=== PATIENT | female | born 1995 | race Caucasian/White ===

== ENCOUNTER 2024-02-12 20:26 | Observation (INO) | payer OTHER, SELFPAY ==
[2024-02-12] VITALS (8 sets, daily range): BP systolic 116–145; BP diastolic 70–99; BMI 37.4; BMI 37.7
--- NOTE | 2024-02-12 16:11 | ED.GENMED ---
History of Present Illness
<Arnaud Vasquez PA-C - Last Filed: 02/12/24 18:06>
General
Chief Complaint: Flank Pain
Source: patient
Time Seen by Provider: 02/12/24 16:05
Travel History
Have you had any contact with someone who has COVID-19?: No
Do you have any symptoms of coronavirus? Fever > 100 degrees, chills, cough, shortness of breath, sore throat, loss of taste or smell, muscle aches, or headache?: No
History of Present Illness
History of Present Illness:
28-year-old female presenting to the emergency department for evaluation of right-sided flank pain that began few days ago while on vacation in [place]. Patient went to urgent care there who prescribed her Tylenol 3 but states she is having minimal
relief with this. Today symptoms continue to get worse and she noticed her urine was much darker in color prompting her to come to the ER for further evaluation. She has a history of 1 previous kidney stone in the past and this feels similar.
Denies any fevers, chills, rigors, nausea, urinary frequency/urgency/dysuria. Did not take anything else for the pain prior to arrival. Last menstrual period 1 week ago. No concern for . Social history noncontributory.
Past History
<Arnaud Vasquze PA-C - Last Filed: 02/12/24 18:06>
Past History
ED Past Medical History: None
ED Past Surgical History: Orthopedic
Social History
Tobacco: Non-smoker
Alcohol: Occasional
Drug: None
Personal: Single
Living: with family
Employment: Employed
Review of Systems
<BRENDA Estrada Last Filed: 02/12/24 18:06>
Review of Systems
All Other Systems: ROS reviewed and negative except as documented in HPI and ROS
Phy Exam
<BRENDA Estrada Last Filed: 02/12/24 18:06>
Physical Exam
Physical Exam:
GENERAL: Alert , appears in significant discomfort
EYE: clear conjunctiva b/l
HEAD: NCAT
ENT: mmm.
CARDIAC: Regular rate and rhythm .
LUNGS: Clear breath sounds bilaterally, no acute respiratory distress, no wheezes/rales/rhonchi
ABDOMEN: Soft, without focal tenderness, no r/g, moderate right CVA tenderness, negative Cesar sign, no tenderness at McBurney's point
NEUROLOGICAL: Alert and oriented
SKIN: Warm and dry, skin intact.
MUSCULOSKELETAL: well perfused.
PSYCH: Normal and appropriate interaction.
Scores
<Arnaud Vasquez PA-C - Last Filed: 02/12/24 18:06>
Heart Failure Risk
Heart Failure Risk Score: Not Applicable
Heart Score for Chest Pain Patients
STEMI patient?: Not applicable
Withdrawal Assessment of Alcohol
Withdrawal Assessment Completed?: Not applicable
Course
<Arnaud Vasquez PA-C - Last Filed: 02/12/24 18:06>
Orders/Labs/Results
Orders:
Orders
02/12/24 16:06
IV Insert/Care/Rem.- Treatment PRN
02/12/24 16:07
Test Result ONCE
02/12/24 16:14
Ketorolac [Toradol] 30 mg IV NOW STA
02/12/24 16:15
CT Abd/pel Without Iv Or Oral Urgent
Comment:
Reason For Exam: right flank pain, hx stones
02/12/24 16:18
Complete Blood Count/With Diff Urgent
Urinalysis Reflex To Culture Urgent
Date Specimen was Collected: 02/12/24
Time Specimen was Collected: 16:07
Urine Microscopic Reflex Cult Urgent
Urine Culture Urgent
AUDREY Source: U
Specimen Description:
Date Specimen was Collected: 02/12/24
Time Specimen was Collected: 16:07
02/12/24 16:24
0.9% Sodium Chloride 1000 ml [Nss] 1,000 ml IV BOLUS
02/12/24 16:50
CefTRIAXone [Rocephin] 1,000 mg IV NOW STA
02/12/24 17:16
Comprehensive Metabolic Panel Urgent
HCG, Serum Qualitative Screen Urgent
02/12/24 18:47
Acetaminophen 1000MG/100Ml [Ofirmev] 1,000 mg in 100 ml IV ONCE
Acetaminophen IV Indication:: ED Narcotic Naive Pt-ONCE
02/12/24 20:08
Admit/Transfer Patient As Directed
Co-Sign Provider:
Level of Care: Observation services
Assign to:: Medical/Surgical
Physician / Group: [facility]/Urological service
Diagnosis: obstructing kidney stone with leukocytosis
02/12/24 20:09
Code Status As Directed
Resuscitation Status: Full Code
02/12/24 21:19
0.9% Sodium Chloride 1000 ml [Nss] 1,000 ml IV 125 mls/hr
Acetaminophen [Tylenol] 650 mg PO Q4HPRN PRN
HYDROmorphone [Dilaudid] 0.5 mg IV Q2HPRN PRN
Ondansetron Injectable [Zofran] 4 mg IV Q6HPRN PRN
Oxycodone/Acetaminophen [Percocet 5/325] 1 tablet PO Q4HPRN PRN
Oxycodone/Acetaminophen [Percocet 5/325] 2 tablet PO Q4HPRN PRN
02/12/24 21:19
Activity As Directed
Activity Level: As Tolerated
Intake/ Output As Directed
Frequency: Per unit guidelines
Okay to Shower As Directed
Pneumatic Compression Sleeves As Directed
Type: Thigh high
Strain Urine As Directed
Vital Signs As Directed
Frequency: Per unit guidelines
DX Deep Vein Thrombosis Video Routine
02/12/24 22:00
Tamsulosin [Flomax] 0.4 mg PO HS
02/13/24 Breakfast
NPO
Allow oral meds: Yes
Allow clear liquids: 4hrs prior to procedure
NPO with Ice Chips: Yes
Comment: may have unrestricted clear liquid up to 4 hrs prior to scheduled procedure
Complete Blood Count/No Diff IN AM
02/13/24 08:00
Heparin 5,000 units SC Q12
02/13/24 16:00
CefTRIAXone [Rocephin] 1,000 mg IV Q24H
Abnormal Lab Results
02/12/24 02/12/24
16:18 17:16
WBC 13.2 H 10^3/uL
(4.8-10.8)
MPV 12.2 H fL
(7.4-10.4)
Abs Immat Gran (auto) 0.1 H 10^3/uL
(0-0.05)
Absolute Neuts (auto) 8.6 H 10^3/uL
(1.4-6.5)
Absolute Monos (auto) 1.0 H 10^3/uL
(0.1-0.6)
Carbon Dioxide 20 L mmol/L
(22-30)
Creatinine 1.1 H mg/dL
(0.6-1.0)
Total Bilirubin 1.5 H mg/dl
(0.2-1.3)
AST 42 H U/L
(14-36)
ALT 42 H U/L
(0-35)
Urine Ketones 3+ A
(Negative)
Ur Occult Blood Reflex 3+ A
(Negative)
Urine Nitrite (Reflex) Positive A
(Negative)
Urine Bilirubin 1+ A
(Negative)
Urine Urobilinogen 3+ A
(Neg - 1+)
Leukocyte Esterase Rfl Trace A
(Negative)
Urine RBC 50-60 A /HPF
(0-2)
Urine Bacteria (Reflex) Moderate A
(Negative)
Urine Albumin (Reflex) 1+ A
(Neg - Trace)
02/12/24 16:18
02/12/24 17:16
Vital Signs
Initial and Last Documented VS:
Initial Vital Signs
Temp Pulse Resp BP Pulse Ox
98.7 F 90 18 126/85 100
02/12/24 15:44 02/12/24 15:44 02/12/24 15:44 02/12/24 15:44 02/12/24 15:44
Last Documented Vital Signs
Temp Pulse Resp BP Pulse Ox
98.2 F 78 20 145/91 99
02/12/24 21:23 02/12/24 21:23 02/12/24 21:23 02/12/24 21:23 02/12/24 21:23
<KAM Angelo - Last Filed: 02/12/24 23:24>
Orders/Labs/Results
Orders:
Orders
02/12/24 16:06
IV Insert/Care/Rem.- Treatment PRN
02/12/24 16:07
Test Result ONCE
02/12/24 16:14
Ketorolac [Toradol] 30 mg IV NOW STA
02/12/24 16:15
CT Abd/pel Without Iv Or Oral Urgent
Comment:
Reason For Exam: right flank pain, hx stones
02/12/24 16:18
Complete Blood Count/With Diff Urgent
Urinalysis Reflex To Culture Urgent
Date Specimen was Collected: 02/12/24
Time Specimen was Collected: 16:07
Urine Microscopic Reflex Cult Urgent
Urine Culture Urgent
AUDREY Source: U
Specimen Description:
Date Specimen was Collected: 02/12/24
Time Specimen was Collected: 16:07
02/12/24 16:24
0.9% Sodium Chloride 1000 ml [Nss] 1,000 ml IV BOLUS
02/12/24 16:50
CefTRIAXone [Rocephin] 1,000 mg IV NOW STA
02/12/24 17:16
Comprehensive Metabolic Panel Urgent
HCG, Serum Qualitative Screen Urgent
02/12/24 18:47
Acetaminophen 1000MG/100Ml [Ofirmev] 1,000 mg in 100 ml IV ONCE
Acetaminophen IV Indication:: ED Narcotic Naive Pt-ONCE
02/12/24 20:08
Admit/Transfer Patient As Directed
Co-Sign Provider:
Level of Care: Observation services
Assign to:: Medical/Surgical
Physician / Group: [facility]/Urological service
Diagnosis: obstructing kidney stone with leukocytosis
02/12/24 20:09
Code Status As Directed
Resuscitation Status: Full Code
02/12/24 21:19
0.9% Sodium Chloride 1000 ml [Nss] 1,000 ml IV 125 mls/hr
Acetaminophen [Tylenol] 650 mg PO Q4HPRN PRN
HYDROmorphone [Dilaudid] 0.5 mg IV Q2HPRN PRN
Ondansetron Injectable [Zofran] 4 mg IV Q6HPRN PRN
Oxycodone/Acetaminophen [Percocet 5/325] 1 tablet PO Q4HPRN PRN
Oxycodone/Acetaminophen [Percocet 5/325] 2 tablet PO Q4HPRN PRN
02/12/24 21:19
Activity As Directed
Activity Level: As Tolerated
Intake/ Output As Directed
Frequency: Per unit guidelines
Okay to Shower As Directed
Pneumatic Compression Sleeves As Directed
Type: Thigh high
Strain Urine As Directed
Vital Signs As Directed
Frequency: Per unit guidelines
DX Deep Vein Thrombosis Video Routine
02/12/24 22:00
Tamsulosin [Flomax] 0.4 mg PO HS
02/13/24 Breakfast
NPO
Allow oral meds: Yes
Allow clear liquids: 4hrs prior to procedure
NPO with Ice Chips: Yes
Comment: may have unrestricted clear liquid up to 4 hrs prior to scheduled procedure
Complete Blood Count/No Diff IN AM
02/13/24 08:00
Heparin 5,000 units SC Q12
02/13/24 16:00
CefTRIAXone [Rocephin] 1,000 mg IV Q24H
Abnormal Lab Results
02/12/24 02/12/24
16:18 17:16
WBC 13.2 H 10^3/uL
(4.8-10.8)
MPV 12.2 H fL
(7.4-10.4)
Abs Immat Gran (auto) 0.1 H 10^3/uL
(0-0.05)
Absolute Neuts (auto) 8.6 H 10^3/uL
(1.4-6.5)
Absolute Monos (auto) 1.0 H 10^3/uL
(0.1-0.6)
Carbon Dioxide 20 L mmol/L
(22-30)
Creatinine 1.1 H mg/dL
(0.6-1.0)
Total Bilirubin 1.5 H mg/dl
(0.2-1.3)
AST 42 H U/L
(14-36)
ALT 42 H U/L
(0-35)
Urine Ketones 3+ A
(Negative)
Ur Occult Blood Reflex 3+ A
(Negative)
Urine Nitrite (Reflex) Positive A
(Negative)
Urine Bilirubin 1+ A
(Negative)
Urine Urobilinogen 3+ A
(Neg - 1+)
Leukocyte Esterase Rfl Trace A
(Negative)
Urine RBC 50-60 A /HPF
(0-2)
Urine Bacteria (Reflex) Moderate A
(Negative)
Urine Albumin (Reflex) 1+ A
(Neg - Trace)
02/12/24 16:18
02/12/24 17:16
Vital Signs
Initial and Last Documented VS:
Initial Vital Signs
Temp Pulse Resp BP Pulse Ox
98.7 F 90 18 126/85 100
02/12/24 15:44 02/12/24 15:44 02/12/24 15:44 02/12/24 15:44 02/12/24 15:44
Last Documented Vital Signs
Temp Pulse Resp BP Pulse Ox
98.2 F 78 20 145/91 99
02/12/24 21:23 02/12/24 21:23 02/12/24 21:23 02/12/24 21:23 02/12/24 21:23
<Arnaud Vasquez PA-C - Last Filed: 02/12/24 18:06>
MDM/Problems Addressed
Differential Diagnosis Includes:
Renal/ureteral colic, cystitis, pyelonephritis, muscular etiology
MDM/Problems Addressed:
28-year-old female presenting emergency department for evaluation of right-sided flank pain that has been ongoing the last few days. Unrelieved with Tylenol with codeine. Patient has history of kidney stones in the past and this feels similar.
Will order labs, CT and urine. Reassessment following.
<KAM Angelo - Last Filed: 02/12/24 23:24>
MDM/Problems Addressed
MDM/Problems Addressed:
28-year-old female presenting emergency department for evaluation of right-sided flank pain that has been ongoing the last few days. Unrelieved with Tylenol with codeine. Patient has history of kidney stones in the past and this feels similar.
Will order labs, CT and urine. Reassessment following.
Pt was admitted to urology
<Arnaud Vasquez PA-C - Last Filed: 02/12/24 18:06>
*Pulse Oximetry
Patient hypoxic: no
<KAM Angelo - Last Filed: 02/12/24 23:24>
*Critical Care Note
Total Time (30-74mins, 75-104mins- exclusive of procedures): Not Applicable
<Arnaud Vasquez PA-C - Last Filed: 02/12/24 18:06>
Comment
Comment:
Patient UA nitrite positive. Rocephin 1g IV ordered.
Patient signed out to HARRIET Aretha Gomez pending CT scan and results/re-eval
ED Attending Note
<Arnaud Vasquez PA-C - Last Filed: 02/12/24 18:06>
-
Portions of this chart may have been created with voice recognition software.� Occasional wrong word or��sound alike� substitutions may have occurred due to the inherent limitations of voice recognition software.
Discharge Plan
Departure
Patient Disposition: Admit
Date of Disposition: 02/12/24
Time of Disposition: 18:06
Admit to: Med/Surg
Admit to doctor: Yady
Presentation/result/management discussed w/ accepting MD/DO: Christina/house provier
Discharge Problem:
Ureterolithiasis, UTI (urinary tract infection)
Interventions
Interventions:
*Risk Screen - Suicide Last Done: 02/12/24 22:03
*General Assessment Last Done: 02/12/24 16:29
*Neglect/Abuse Screening Last Done: 02/12/24 16:29
ED- Fall Risk Assessment Last Done: 02/12/24 18:02
*ED COVID-19 Vaccine History Last Done: 02/12/24 22:03
*Nursing Disposition Last Done: 02/12/24 21:15
ME-Uvdijw-Ovwuhasuas Assessment Last Done: 02/12/24 19:25
ED-Female Genitourinary Assessment Last Done: 02/12/24 16:29
Discharge Date and Time
Discharge Date/Time: 02/12/24 21:15
[2024-02-12] MEDS: TORADOL 30 MG IV (16:20)
[2024-02-12 16:23] LABS: Urine Albumin 1+ (Neg - Trace); Urine Bilirubin 1+ (Negative); Urine Character Very Cloudy (Clear); Urine Color Amber; Urine Glucose Negative (Negative); Urine Ketone 3+ (Negative); Urine Leukocyte Trace (Negative); Urine Nitrite Positive (Negative); Urine Occult Blood 3+ (Negative); Urine Urobilinogen 3+ (Neg - 1+)
[2024-02-12] MEDS: NSS 1000 IV ×2 (16:25→21:49)
[2024-02-12 16:26] LABS: % Basophils 0.7 % (0-2); % Immature Granulocytes 0.4 % (0-0.5); % Lymphocytes 24.4 % (20.5-51.1); % Monocytes 7.8 % (1.7-9.3); % Neutrophils 64.7 % (42.2-75.2); Absolute Basophils 0.1 10^3/uL (0-0.2); Absolute Eosinophils 0.3 10^3/uL (0-0.7); Absolute Immature Granulocytes 0.1 10^3/uL (0-0.05); Absolute Lymphocytes 3.2 10^3/uL (1.2-3.4); Absolute Neutrophils 8.6 10^3/uL (1.4-6.5); Hematocrit 38.7 % (37.0-47.0); Hemoglobin 13.2 g/dL (12.0-16.0); Mean Corp Hgb Conc. 34.1 g/dL (33.0-37.0); Nucleated Red Blood Cells % 0 %; Red Blood Cell Count 4.72 10^6/uL (4.20-5.40); White Blood Cell Count 13.2 10^3/uL (4.8-10.8)
[2024-02-12 16:36] LABS: Urine Bacteria Moderate (Negative); Urine Squamous Cell 26-30 /LPF (Few)
[2024-02-12 16:37] LABS: Urine Red Blood Cell 50-60 /HPF (0-2); Urine White Cell 0-2 /HPF (0-5)
[2024-02-12 16:41] LABS: Mean Platelet Volume 12.2 fL (7.4-10.4); Platelet Count 290 10^3/uL (130-400)
[2024-02-12] MEDS: ROCEPHIN 1000 MG IV (17:18)
[2024-02-12 17:35] LABS: HCG, Serum Qualitative Screen Negative
[2024-02-12 18:39] LABS: ALT (SGPT) 42 U/L (0-35); AST (SGOT) 42 U/L (14-36); Albumin 3.8 g/dl (3.5-5.0); Alkaline Phosphatase 90 U/L (38-126); Blood Urea Nitrogen 12 mg/dl (7-17); Calcium 8.9 mg/dl (8.4-10.2); Carbon Dioxide 20 mmol/L (22-30); Chloride 107 mmol/L (98-107); Glucose 83 mg/dl (70-99); Potassium 3.9 mmol/L (3.5-5.1); Sodium 138 mmol/L (135-145); Total Bilirubin 1.5 mg/dl (0.2-1.3); Total Protein 6.6 g/dl (6.3-8.2); eGFR > 60.00
[2024-02-12] MEDS: OFIRMEV 100 IV (18:50)
--- NOTE | 2024-02-12 20:30 | HPS.HSE ---
Family Physician
-
Family Physician: Marci Tidwell PA-C
Chief Complaint
-
right flank pain
History of Present Illness
This is a very pleasant 28 year old female who was visiting her aunt in [place] for a wedding when she began to have right flank pain. She went to an urgent care there and was prescribed tylenol with codeine but this was minimally effective. PMH
includes previous ureterolithiasis, mild persistant asthma, chronic back pain with steroid injection in 10/29 and PCOS. She returned from her a trip a few days ago and came to the ED today. She also notes decreased appetite over past few days due to
pain but no N/V.
Medical History
Past Medical History
Past Medical History: Reports Asthma and Other (PCOS, obesity, chronic back pain, concussions x2)
Past Surgical History: Reports Orthopedic (right rotator cuff repair 2011, steroid injection to her back 10/29...)
Social History
Tobacco: Non-smoker
Alcohol: Occasional
Drug: None
Personal: Single
Living: Alone
Employment: Employed
Family History
Family History: Hypertension
Allergies / Home Medications
Allergies reflects when Allergies were last updated in [employer].
Home Medications with original date entered in [employer]
Allergy/Medication List:
Allergies
Allergy/AdvReac Type Severity Reaction Status Date / Time
Fish Containing Products Allergy Unknown Verified 02/12/24 15:44
Home Medications
acetaminophen 300 mg-codeine 30 mg tablet 1 tab PO TIDPRN PRN moderate pains 02/12/24
ibuprofen 100 mg chewable tablet 200 mg PO TIDPRN PRN mild pain 02/12/24
norgestimate 0.25 mg-ethinyl estradiol 35 mcg tablet (Simona) 1 tab PO HS 02/12/24
Review of Systems
-
History Source: Patient and Family
A 12 point ROS was completed and negative except as noted: Yes
Constitutional: Reports No Symptoms
EENT: Reports No Symptoms
Respiratory: Reports No Symptoms
Cardiac: Reports No Symptoms
Abdomen/GI: Reports No Symptoms
: Reports Flank Pain
Musculoskeletal: Reports No Symptoms
Skin: Reports No Symptoms
Neurological: Reports No Symptoms
Endocrine: Reports No Symptoms
Hematologic/Lymphatic: Reports No Symptoms
Psych: Reports No Symptoms
Physical Exam
Vital Signs
Vital Signs
Temp Pulse Resp BP Pulse Ox
98.5 F 80 16 129/75 98
02/12/24 19:25 02/12/24 20:00 02/12/24 19:25 02/12/24 20:00 02/12/24 20:00
Physical Exam
General: Well Developed, Well Nourished and Comfortable
HEENT: NormoCephalic, Moist mucous membranes and Atraumatic
Respiratory: Clear and Non Labored Respirations
Cardiac: S1/S2 and Regular Rhythm
Breast: Deferred by me
GI: Soft, Non Tender, Non Distended and Normal Bowel Sounds
Genito-urinary: Other (kathleen)
Musculoskeletal: No Cyanosis and No Edema
Skin: Warm and Dry
Neuro: Awake, Alert, AO x 3 and No Motor Deficits
Hematologic/Lymphatic: No Lymphadenopathy
Psych: Calm
Laboratory Results
-
02/12/24 16:18
02/12/24 17:16
Laboratory Results
Total Bilirubin 1.5 mg/dl (0.2-1.3) H 02/12/24 17:16
AST 42 U/L (14-36) H 02/12/24 17:16
ALT 42 U/L (0-35) H 02/12/24 17:16
Alkaline Phosphatase 90 U/L (38-126) 02/12/24 17:16
Lipase Cancelled 02/12/24 16:18
Data Reviewed
-
CT Scan: Report Reviewed by me
Lab Data: Labs Reviewed by me
Old Records: Reviewed
Impression/Plan
-
IMPRESSION: acute obstructive ureterolithiasis, urinary tract infection
PLAN: This is a very pleasant 28 year old female who was visiting her aunt in [place] for a wedding when she began to have right flank pain. She went to an urgent care there and was prescribed tylenol with codeine but this was minimally effective.
PMH includes previous ureterolithiasis, mild persistant asthma, chronic back pain with steroid injection in 10/29 and PCOS. She returned from her a trip a few days ago and came to the ED today.
*Obstructive ureterolithiasis: NPO, NS IVF, strain urine, pain control. To OR Tuesday if stone has not passed per Dr. Conteh.
*Leukocytosis/UTI: Rocephin IV abt. Trend CBC. Awaiting final urine culture result.
*Mild persistent asthma: PRN albuterol inhaler only if needed for wheeze.
*JIM: Trend BMP. NS IVF. likely due to the obsx uropathy/decreased po intake.
*Elevated transanimates: Trend. Possibly related to obesity.
*Obesity: affects all aspects of care.
*PCOS: Norgestimate-ethinyl estradiol at HS. Her last menstruation was last week.
*Chronic back pain: Steroid injection in October 2023. Takes Ibuprofen at home but will hold while here.
*DVT prophylaxis: Heparin SQ q 12H. SCDs..oob
*Disposition: FC. Admit to Dr. Conteh/urology service.
--- NOTE | 2024-02-12 21:23 | PTCARENOTE ---
Pt arrived from ED via stretcher and ambulated to bed w/ family member at bedside. Pt is AAOx3, VSS, complained 3/10 R flank pain- RN administered Percocet. Pt is resting comfortably w/ call phoenix within reach.
[2024-02-12] MEDS: PERCOCET 5/325 1 TABLET PO (22:23)
[2024-02-12] MEDS: FLOMAX 0.400000000000000022 MG PO (22:23)
[2024-02-13] MEDS: DILAUDID 0.5 MG IV ×2 (00:49→04:25)
[2024-02-13] MEDS: DILAUDID 1 MG IV (05:21)
[2024-02-13] MEDS: NSS 1000 IV ×3 (05:21→21:06)
[2024-02-13] MEDS: ZOFRAN 4 MG IV (06:26)
[2024-02-13 06:31] LABS: Hematocrit 34.5 % (37.0-47.0); Hemoglobin 11.4 g/dL (12.0-16.0); Mean Corpuscular Volume 84.8 fL (81.0-99.0); Mean Platelet Volume 12.6 fL (7.4-10.4); Platelet Count 252 10^3/uL (130-400); Red Blood Cell Count 4.07 10^6/uL (4.20-5.40); Red Cell Dist. Width 13.2 % (11.5-14.5)
[2024-02-13 06:55] LABS: ALT (SGPT) 44 U/L (0-35); AST (SGOT) 35 U/L (14-36); Albumin 3.5 g/dl (3.5-5.0); Alkaline Phosphatase 93 U/L (38-126); Blood Urea Nitrogen 12 mg/dl (7-17); Calcium 8.8 mg/dl (8.4-10.2); Carbon Dioxide 20 mmol/L (22-30); Chloride 109 mmol/L (98-107); Estimated Creatinine Clearance 84 ml/min; Glucose 73 mg/dl (70-99); Potassium 4.1 mmol/L (3.5-5.1); Sodium 139 mmol/L (135-145); Total Bilirubin 0.9 mg/dl (0.2-1.3); Total Protein 6.1 g/dl (6.3-8.2); eGFR > 60.00
[2024-02-13 07:00] VITALS: BP 122/80
[2024-02-13] MEDS: PERCOCET 5/325 2 TABLET PO ×3 (08:36→22:39)
[2024-02-13] MEDS: HEPARIN 5000 UNITS SC ×2 (08:37→20:00)
--- NOTE | 2024-02-13 09:05 | W.PN.URO.CBU ---
Today's Communication / Plan
-
Continue trial of stone passage
OR tomorrow should stone not pass
Continue Ceftriaxone and tamsulosin
Await urine C&S
Regualar diet today
NPO after MN
---
Discussed pros and cons of surgical intervention with patient: risk of ureteral or bladder injury reviewed. Consent signed
Assessment / Plan
-
Right renal colic secondary to right proximal ureteral stone
Left renal calculus
Diagnosis
-
Date of Service: February 13, 2024
-
Patient Diagnosis:
Right renal colic
7 mm partially obstructing right proximal ureteral stone
Left renal calculus
Subjective
-
c/o right renal colic
Nausea secondary to Dilaudid
Objective
-
Vital Signs
Temp Pulse Resp BP Pulse Ox
98.1 F 72 18 122/80 98
02/13/24 07:00 02/13/24 07:00 02/13/24 07:00 02/13/24 07:00 02/13/24 07:00
Intake and Output
02/12/24 02/13/24 02/14/24
06:59 06:59 06:59
Intake Total 0 / 0
Output Total 250 / 250
Balance -250 / -250
Intake:
Oral fluids 0 / 0
Output:
Urine, Voided 250 / 250
Laboratory Results
02/13/24 05:09
02/13/24 05:09
Review of Systems
-
Constitutional: No Symptoms
Respiratory: No Symptoms
Cardiac: No Symptoms
Abdomen/GI: Pain
: No Symptoms
Neurological: No Symptoms
Physical Exam
-
General - well developed, well nourished, no acute distress
Abdomen - soft, non-tender, positive bowel sounds, right CVAT
Skin - warm & dry with no rash
Neuro - AOx3, no motor deficits
Counseling
-
Continue trial of stone passage
[2024-02-13] MEDS: TORADOL 30 MG IV ×2 (12:08→19:56)
--- NOTE | 2024-02-13 12:14 | CM ---
Sayra is a 28yo female admitted with a kidney stone. Plan for OR tomorrow unless she passes the stone prior.
Sayra lives with her parents in a 2 story townhouse. Bedroom and bathroom are on the second floor. 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
after the hospitalization.
CM will follow to assist with discharge needs, however anticipate pt will return home with parents and no needs.
PCP: Marci Tidwell
[2024-02-13 14:44] VITALS: BP 116/72
[2024-02-13] MEDS: STERILE WATER FOR INJECTION 10 ML IV (16:09)
[2024-02-13] MEDS: ROCEPHIN 1000 MG IV (16:10)
[2024-02-13] MEDS: FLOMAX 0.400000000000000022 MG PO (21:06)
[2024-02-13 23:26] VITALS: BP 118/68
[2024-02-14] VITALS (12 sets, daily range): BP systolic 114–146; BP diastolic 75–95
[2024-02-14] MEDS: TORADOL 30 MG IV ×3 (02:34→15:40)
[2024-02-14] MEDS: PERCOCET 5/325 2 TABLET PO (03:49)
[2024-02-14 05:34] LABS: Hematocrit 32.6 % (37.0-47.0); Hemoglobin 10.7 g/dL (12.0-16.0); Mean Corp Hgb Conc. 32.8 g/dL (33.0-37.0); Mean Corpuscular Hgb 27.9 pg (27.0-31.0); Mean Corpuscular Volume 84.9 fL (81.0-99.0); Mean Platelet Volume 12.6 fL (7.4-10.4); Platelet Count 225 10^3/uL (130-400); Red Blood Cell Count 3.84 10^6/uL (4.20-5.40); Red Cell Dist. Width 13.2 % (11.5-14.5); White Blood Cell Count 8.2 10^3/uL (4.8-10.8)
[2024-02-14 06:05] LABS: Blood Urea Nitrogen 9 mg/dl (7-17); Calcium 8.7 mg/dl (8.4-10.2); Carbon Dioxide 21 mmol/L (22-30); Chloride 110 mmol/L (98-107); Estimated Creatinine Clearance 92 ml/min; Glucose 87 mg/dl (70-99); Potassium 4.8 mmol/L (3.5-5.1); Sodium 138 mmol/L (135-145); eGFR > 60.00
[2024-02-14] MEDS: ZOFRAN 4 MG IV ×2 (07:08→11:45)
[2024-02-14] MEDS: HEPARIN SC (07:56)
--- NOTE | 2024-02-14 11:10 | W.IMMPOSTOP ---
Surgical Immed Post Op Note
-
Primary Surgeon: Yady
Assisting Surgeon: None
Pre-op Diagnosis: right ureteral stone, right renal colic
Post-op Diagnosis: same
Procedure Performed: right ureteroscopic laser lithotripsy with stone manipulation and JJ stent placement
Anesthesia Type: GET
Specimen / Cultures: None
Estimated Blood Loss: None
Complications: None
--- NOTE | 2024-02-14 11:14 | W.DS.TRANS ---
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
-
Discharge Instructions:
Instructions:
Stand-Alone Forms:
Changes to Home Medications: No
Discharge Medications:
DC Medications w/original date entered in [employer]
acetaminophen 300 mg-codeine 30 mg tablet 1 tab PO TIDPRN PRN moderate pains 02/12/24
ibuprofen 100 mg chewable tablet 200 mg PO TIDPRN PRN mild pain 02/12/24
norgestimate 0.25 mg-ethinyl estradiol 35 mcg tablet (Simona) 1 tab PO HS Hormonal Agent 02/12/24
Home Medication Changes
Pending Results: No
--- NOTE | 2024-02-14 11:55 | SUR.PHASEI ---
Patient with nausea on arrival to PACU, Zofran given per orders. Vin Childress RN BSN.
[2024-02-14] MEDS: DILAUDID 0.25 MG IV ×2 (11:58→12:06)
[2024-02-14] MEDS: Pyridium 200 MG PO (12:11)
--- NOTE | 2024-02-14 14:54 | CM ---
Sayra went to the OR today for stone removal. She will be returning home this evening.
No Needs identified.
Plan: Discharge to home follow up with Marci Tidwell.
[2024-02-14] MEDS: ROCEPHIN 1000 MG IV (15:39)
[2024-02-14] MEDS: STERILE WATER FOR INJECTION 10 ML IV (15:40)
== END 2024-02-14 18:42 | disposition home or self-care (01) ==
LOC: 4 EAST ACU 20:26
PROVIDERS: Physician Assistant Medical; Registered Nurse; ADMITTING PHYSICIAN Specialist; EMERGENCY PHYSICIAN Emergency Medicine; FAMILY PHYSICIAN Physician Assistant Medical
DX: N13.6 Pyonephrosis (principal); J45.30 Mild persistent asthma, uncomplicated; E28.2 Polycystic ovarian syndrome; G89.29 Other chronic pain; N17.9 Acute kidney failure, unspecified; E66.9 Obesity, unspecified; Z68.37 Body mass index [BMI] 37.0-37.9, adult; Z91.013 Allergy to seafood; Z87.442 Personal history of urinary calculi
CPT/HCPCS: 52356; 74018; 74176; 76000; 80048; 80053; 81003; 81015; 84703; 85025; 85027; 87086; 96361; 96374; 96375; 99285; C1894; C2617; G0378

== ENCOUNTER 2024-05-31 06:34 | Day surgery (SDC) | payer OTHER, SELFPAY ==
[2024-05-31 08:43] VITALS: BMI 37.1
[2024-05-31 08:44] VITALS: BMI 37.1
[2024-05-31] MEDS: Pyridium 200 MG PO (09:02)
[2024-05-31] MEDS: NORMOSOL-R/PLASMALYTE-A 1000 IV (10:05)
[2024-05-31 11:45] VITALS: BP 125/81; BP 137/88
[2024-05-31 12:24] VITALS: BP 124/82
[2024-05-31] MEDS: TYLENOL 650 MG PO (12:41)
[2024-05-31 12:44] VITALS: BP 124/92
[2024-05-31 13:01] VITALS: BP 127/87
[2024-06-04 18:52] LABS: Stone Analysis Mass 17 mg
== END 2024-05-31 13:17 | disposition home or self-care (01) ==
LOC: SDS 06:34
PROVIDERS: ATTENDING PHYSICIAN Specialist
DX: N20.1 Calculus of ureter (principal)
CPT/HCPCS: 52356; 74018; 76000; 82365; C1894; C2617

== ENCOUNTER → 2024-12-21 09:58 | Outpatient (REF) | payer OTHER, SELFPAY | LOC: WDC 09:58 | PROVIDERS: ATTENDING PHYSICIAN Nurse Practitioner Adult Health; FAMILY PHYSICIAN Physician Assistant Medical | DX: N63.0 Unspecified lump in unspecified breast (principal) | CPT/HCPCS: 76642; 77062; 77066 ==

== ENCOUNTER 2025-03-04 18:41 | Outpatient (RCR) | payer OTHER, SELFPAY | END 2025-03-04 23:59 | disposition home or self-care (01) | LOC: RPT 18:41 | PROVIDERS: ATTENDING PHYSICIAN Student in an Organized Health Care Education/Training Program; FAMILY PHYSICIAN Physician Assistant Medical | DX: M72.2 Plantar fascial fibromatosis (principal); Z73.6 Limitation of activities due to disability | CPT/HCPCS: 97110; 97112; 97140; 97162 ==

== ENCOUNTER 2025-04-01 19:02 | Outpatient (RCR) | payer OTHER, SELFPAY | END 2025-04-01 23:59 | disposition home or self-care (01) | LOC: RPT 19:02 | PROVIDERS: ATTENDING PHYSICIAN Student in an Organized Health Care Education/Training Program; FAMILY PHYSICIAN Physician Assistant Medical | DX: M72.2 Plantar fascial fibromatosis (principal); Z73.6 Limitation of activities due to disability | CPT/HCPCS: 97010; 97110; 97112; 97140 ==

== ENCOUNTER 2025-04-29 18:54 | Outpatient (RCR) | payer OTHER, SELFPAY | END 2025-04-29 23:59 | disposition home or self-care (01) | LOC: RPT 18:54 | PROVIDERS: ATTENDING PHYSICIAN Student in an Organized Health Care Education/Training Program; FAMILY PHYSICIAN Physician Assistant Medical | DX: M72.2 Plantar fascial fibromatosis (principal); Z73.6 Limitation of activities due to disability; R26.2 Difficulty in walking, not elsewhere classified | CPT/HCPCS: 97110; 97140 ==

== ENCOUNTER → 2025-06-26 17:58 | Outpatient (REF) | payer OTHER, SELFPAY | LOC: RAD 17:58 | PROVIDERS: ATTENDING PHYSICIAN Specialist; FAMILY PHYSICIAN Physician Assistant Medical | DX: N20.0 Calculus of kidney (principal) | CPT/HCPCS: 74018 ==